=== PATIENT | female | born 1995 | race Two or more races ===

== ENCOUNTER 2021-08-28 01:25 | Emergency (ER) | payer OTHER ==
[~2021-08-28] VITALS: Ht 167.6 cm; Wt 75.7 kg
[2021-08-28] MEDS ORDERED: CEPHALEXIN500 MG PO (04:13)
[2021-08-28] MEDS ORDERED: KETO10TA2 PO ×2 (04:13)
== END 2021-08-28 04:17 ==
LOC: ER 01:25
DX: S01.81XA Laceration without foreign body of other part of head, initial encounter (principal); W22.8XXA Striking against or struck by other objects, initial encounter; Y93.89 Activity, other specified; Y92.59 Other trade areas as the place of occurrence of the external cause; Y99.8 Other external cause status